=== PATIENT | female | born 1935 | race Caucasian/White ===

== ENCOUNTER 2016-07-01 10:41 | Observation (INO) | payer MEDICARE, BC ==
[2016-07-01] VITALS (26 sets, daily range): BP systolic 125–154; BP diastolic 57–77; PULSE 81–106; RESP 14–64; TEMP 97.1–98.2; O2SAT 90–99; Ht 149.9 cm; Wt 46.4 kg
[~2016-07-01] VITALS: Ht 149.9 cm; Wt 46.4 kg
[~2016-07-01 10:41] MED LIST: ABAT125S PO; ASPI-725 PO; CALC-727 PO; CITA-50 PO; FERR324T6 PO; MAGN400T25 PO; METO25TA6 PO; MULT1TAB69 PO; RANI-197 PO; WARF2TAB51 PO; WARF2TAB6 PO; [UNRECOGNIZED DRUG - CODE] PO
--- OUTSIDE RECORDS SUMMARY | 2016-07-01 10:53 | XMS REPORT | Continuity of Care Document ---
Author Author [facility] Organization [facility] Address Unknown Phone Unavailable Allergies Active Description Code Type Severity Reaction Onset Reported/Identified Relationship to Patient Clinical Status Yes Sulfa (Sulfonamide Antibiotics Drug Allergy N/A Eczema ( rash) 02/27/2010 Yes No Known Food Allergies Food Allergy N/A N/A 08/03/2013 Medications Problems Date Dx Coded Attending Type Code Diagnosis Diagnosed By 07/31/2013 Darrin Nuñez MD Final 424.0 MITRAL VALVE DISORDER 07/31/2013 Darrin Nuñez MD Final 425.11 HYPERTR OBSTR CARDIOMYOP 07/31/2013 Darrin Nuñez MD Final V72.63 PRE-PX LABORATORY EXAM 07/31/2013 Darrin Nuñez MD Final V72.81 PREOP CV EXAM 07/31/2013 Darrin Nuñez MD Final V72.83 PREOP EXAMINATION NEC 08/03/2013 Darrin Nuñez MD Final 285.1 ACUTE POSTHEMOR ANEMIA 08/03/2013 Darrin Nuñez MD Final 401.9 HYPERTENSION NOS 08/03/2013 Darrin Nuñez MD Final 424.0 MITRAL VALVE DISORDER 08/03/2013 Darrin Nuñez MD Final 425.11 HYPERTR OBSTR CARDIOMYOP 08/03/2013 Darrin Nuñez MD Final 427.32 ATRIAL FLUTTER 08/03/2013 Darrin Nuñez MD Final 428.0 CHF NOS 08/03/2013 Darrin Nuñez MD Final 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 Visit Date/Time Discharge Status Pt. Type Provider Facility Loc./Unit Complaint [id number] 08/03/2013 07:04:00 2013 14:04:00 DIS Inpatient Darrin Nuñez MD [address] [id number] 07/31/2013 08:45:00 2013 23:59:59 CLS Outpatient Darrin Nuñez MD [facility]
--- OUTSIDE RECORDS SUMMARY | 2016-07-01 10:53 | XMS REPORT | Continuity of Care Document ---
Author Author [facility] Organization [facility] Address Unknown Phone Unavailable Support Name Relationship Address Phone AUGUST, ROSE De Paz DO Caregiver [address] [place] [address] Unavailable ELISHA FLAVIO Winter DO Caregiver [address] [place] [address] Unavailable JR SIMONTY Next Of Kin [address] [place], [place] [id number] Insurance Providers Guarantor Dari Heller Address [address] [place] [address] Email [email or web address] Payer [employer] Plan 65 Policy Number [id number] Subscriber's Name Dari Hellre Carina Relationship 18 Self Group Number [id number] Payer Medicare Policy Number [id number] Subscriber's Name Dari Heller E Relationship 18 Self Advance Directives Directive Response Recorded Date/Time Advanced Directives Type Living Will DPOA for Healthcare 08/24/13 11:53am Ordered Resuscitation Status Full Code 08/24/13 10:31am Resuscitation Documents on File No 08/24/13 11:53am Chief Complaint and Reason for Visit Chief Complaint Laceration Reason for Visit [id number] Warfarin-induced coagulopathy Problems Active Problems Medical Problem Onset Date Status Abrasion of face Unknown Acute Nasal bone fractures Unknown Acute Nasal bone fractures Unknown Acute Past Problems Medical Problem Onset Date Contusion of right leg Unknown Elevated INR Unknown Hematoma Unknown Skin avulsion Unknown Warfarin-induced coagulopathy Unknown Medications Current Home Medications Medication Dose Units Route Directions Days Qty Instructions Start Date Abatacept (Orencia) 125 Mg/1 Ml Syringe 125 Mg Oral [id number] 05/30 Ascorbic Acid (Vitamin C With Jacqui Hips) 500 Mg Tablet 500 Mg Oral Daily 05/30/16 Aspirin 81 Mg Tab.chew 81 Mg Oral Bedtime 08/24/13 Calcium Carbonate/Vitamin D3 (Calcium 600 + Vit D 200 Tablet) 1 Each Tablet 1 Tab Oral Every Morning 05/30/16 Calcium Carbonate/Vitamin D3 (Calcium 600 + Vit D 200 Tablet) 1 Each Tablet 2 Tab Oral Bedtime 05/30/16 Citalopram Hydrobromide (Celexa) 20 Mg Tablet 10 Mg Oral Bedtime 03/26/12 Ferrous Sulfate 324 Mg Tablet 324 Mg Oral Give With Breakfast Magnesium Oxide (Mag-Oxide) 400 Mg Tablet 400 Mg Oral Twice A Day 08/24/13 Metoprolol Tartrate 25 Mg Tablet 25 Mg Oral Twice A Day 12/09/13 Multivitamin (Multivitamins) 1 Each Tablet 1 Tab Oral Daily 05/30 Ranitidine Hcl 150 Mg Tablet 150 Mg Oral Twice A Day 08/24/13 Warfarin Sodium 2 Mg Tablet 2 Mg Oral Sututhsa@Hs 08/24/13 Warfarin Sodium 2 Mg Tablet 1 Mg Oral Mowefr@Hs 12/02/15 Past Home Medications Medication Directions Ordered Status Amiodarone Hcl 200 Mg Tablet, Daily 08/24/13 Discontinued Aspirin 325 Mg Tablet, 325 Mg Oral Bedtime 07/10/13 Discontinued Diltiazem Hcl (Diltiazem Er) 180 Mg Cap.sr.24h, 180 Mg Oral Daily 07/10/13 Discontinued Fexofenadine Hcl (Patty) 30 Mg Tablet, 30 Mg G Tube As Needed 03/26/12 Discontinued Multivitamins W-Minerals (Multivitamin) 1 Cap Capsule, 1 Cap Oral Daily 01/30 Discontinued [place]-3 Fatty Acids (Fish Oil) 500 Mg Capsule, 1200 Mg Oral Three Times A Day 01/30/10 Discontinued Ranitidine Hcl 300 Mg Capsule, 150 Mg Oral Twice A Day 03/26/12 Discontinued Social History Social History Problem Response Recorded Date/Time Onset Date Status Hx Substance Use No 05/30/2016 5:30pm Not Applicable Not Applicable Hx Alcohol Use No 05/30/2016 5:30pm Not Applicable Not Applicable Has the pt used tobacco in the last 12 months No 04/17/2016 11:42am Not Applicable Not Applicable Tobacco Usage none 07/09/2014 2:10pm Not Applicable Not Applicable Query Response Start Date Stop Date Smoking Status Never smoker Hospital Discharge Instructions No hospital discharge instructions. Plan of Care Discharge Date 05/30/16 7:00pm Disposition 01 DISCHARGED HOME, SELF-CARE Condition at Discharge Improved Instructions/Education Provided Skin Avulsion (ED) Prescriptions See Medication Section Referrals FLAVIO TELLO DO Address: [address] [place] [address] [place] [phone] Additional Instructions/Education Keep dressing in place on forearm for 4 days. Do not take off steri-strip, let it come off on it's own. When you do put a new dressing on wound, use Telfa so it does not stick to wound/clot. Follow treatment plan. Follow with your PCP as needed. Care Plan and Goals Physician Care Plan Problem: Skin avulsion, warfarin induced coagulopathy Goal: Follow up with primary care provider Instructions: Take medications and follow care plan as discussed/written Functional Status No functional status results. Allergies, Adverse Reactions, Alerts Allergen Type Severity Reaction Status Last Updated Sulfa (Sulfonamide Antibiotics) Allergy Unknown Active 05/30/16 Immunizations Query Response on File Recorded Date/Time Hx Influenza Vaccination Y fall 201504/17/16 11:42am Hx Pneumococcal Vaccination Y 201304/17/16 11:42am Hx Influenza Vaccination Y fall 201504/17/16 11:42am Hx Tetanus Diptheria Y 05/05/12 07/09/14 12:06pm Vital Signs Acute Vital Signs Vital Response Date/Time Temperature (Fahrenheit) 98.7 deg F (96.8 - 99.1) 05/30/2016 7:00pm Temperature (Calculated Celsius) 37.27405 degrees C (36.0 - 37.3) 05/30/2016 7:00pm Pulse Rate (adult) 86 bpm (60 - 100) 05/30/2016 7:00pm Respiratory Rate 16 breaths/min (10 - 20) 05/30/2016 7:00pm O2 Sat by Pulse Oximetry 93 % (90 - 100) 05/30/2016 7:00pm Oxygen Delivery Method Room Air 05/22/2016 10:49am Blood Pressure 139/65 mm Hg 05/30/2016 7:00pm Blood Pressure Source Automatic Cuff 05/22/2016 10:49am Height (Feet) 5 feet 05/30/2016 5:15pm Height (Inches) 0 inches 05/30/2016 5:15pm Weight (Kilograms) 48.500 kg 05/30/2016 5:15pm Body Mass Index (BMI) 20.0 05/30/2016 5:15pm Results Laboratory Results Test Name Result Units Flags Reference Collection Date/Time Result Date/ Time Comments Prothromb Time International Ratio 2.76 H 0.76-1.04 05/30/2016 6:27pm 05/30/2016 6:37pm THERAPUTIC RANGE=2.00-3.00 FOR ANTI-THROMBOSIS THERAPUTIC RANGE=2.50-3.50 FOR IMPLANTED VALVE Procedures Procedure Status Date Provider(s) Ther/proph/diag iv inf init Completed 03/30/16 Ther/proph/diag iv inf addon Completed 03/30/16 810176"INJECTION INFLIXIMAB, 10 MG" Completed 03/30/16 459856"INFUSION, NORMAL SALINE SOLUTION , 250 CC" Completed 03/30/16 Encounters Encounter Location Arrival/Admit Date Discharge/Depart Date Attending Provider Departed Emergency Room [facility] 05/30/16 5:12pm 05/30/16 7: 00pm AUGUSTROSE DO Registered Recurring [facility] 05/22/16 11:00am FLAVIO TELLO DO Discharged [facility] 03/30/16 12:59pm 04/07/16 11: 22pm FLAVIO TELLO DO Recent Diagnosis
--- OUTSIDE RECORDS SUMMARY | 2016-07-01 10:53 | XMS REPORT | Continuity of Care Document ---
Author Author [facility] Organization [facility] Address Unknown Phone Unavailable Support Name Relationship Address Phone JINJEAN MNOAHAN Caregiver [facility] [address] [place] [address] FLAVIO TELLO DO Caregiver [facility] [address] [place] [phone] ZAFAR SIMON Next Of Kin [address] [place] [address] Insurance Providers Payer Name Policy Number Subscriber Name Relationship Medicare [id number] Dari Heller 18 Self [employer] Select Plan 65 [id number] Dari Heller 18 Self Advance Directives Directive Response Recorded Date/Time Advanced Directives Type Living Will DPOA for Healthcare 08/24/13 11:53am Ordered Resuscitation Status Full Code 08/24/13 10:31am Resuscitation Documents on File No 08/24/13 11:53am Problems Medical Problems Problem Onset Date Status Nasal bone fractures Unknown Active Abrasion of face Unknown Active Nasal bone fractures Unknown Active Medications Medication Dose Route Sig Days/Qty Instructions Order Date Discontinued Date Status Calcium Carbonate/Vitamin D3 1 Udtab PO TWICE A DAY 01/30/10 Active Multivitamins W-Minerals 1 Cap PO DAILY 01/30/10 08/24/13 Discontinued Ascorbic Acid 500 Mg PO DAILY 01/30/10 Active [place]-3 Fatty Acids 1,200 Mg PO THREE TIMES A DAY 01/30/10 08/24/13 Discontinued Citalopram Hydrobromide 1.5 Tab PO BEDTIME 03/26/12 Active Ranitidine Hcl 150 Mg PO TWICE A DAY 03/26/12 08/24/13 Discontinued Fexofenadine Hcl 30 Mg GT NEEDED 03/26/12 08/26/13 Discontinued Aspirin 325 Mg PO BEDTIME 07/10/13 08/24/13 Discontinued Diltiazem Hcl 180 Mg PO DAILY 07/10/13 08/24/13 Discontinued Magnesium Oxide 400 Mg PO TWICE A DAY 08/24/13 Active Furosemide DAILY 30 Days 08/24/13 Active Warfarin Sodium Unknown Dose PO DAILY 30 Days PT TAKES ALTERNATING DOSES EACH DAY. 08/24/13 Active Potassium Chloride Unknown Dose PO DAILY 30 Days 08/24/13 Active Amiodarone Hcl DAILY 30 Days 08/24/13 12/09/13 Discontinued Ferrous Sulfate 324 Mg PO GIVE WITH BREAKFAST 1 Qty 08/24/13 Active Aspirin 81 Mg PO 08/24/13 Active Ranitidine Hcl 150 Mg PO TWICE A DAY 08/24/13 Active Vits W-Ca,Fe,Fa(<1MG) 1 Tab PO DAILY 08/24/13 Active Fexofenadine Hcl 180 Mg PO DAILY PRN PRN ORDERS 08/26/13 Active Metoprolol Tartrate Unknown Dose PO TWICE A DAY 30 Days 12/09/13 Active Cephalexin 1 Cap PO FOUR TIMES DAILY For infection 10 Days 07/09/14 Active Social History Social History Problem Response Recorded Date/Time Hx Substance Use No 07/09/2014 12:06pm Hx Alcohol Use No 07/09/2014 12:06pm Has the pt used tobacco in the last 12 months No 12/09/2013 3:09pm Tobacco Usage none 07/09/2014 2:10pm Query Response Start Date Stop Date Smoking Status Never smoker Hospital Discharge Instructions No hospital discharge instructions. Plan of Care No plan of care. Functional Status Query Response Date Recorded Physical Hygiene Self July 09, 2014 12:06pm Disabilities None July 09, 2014 12:06pm Devices Used None July 09, 2014 12:06pm Dressing Self July 09, 2014 12:06pm Ambulation Self July 09, 2014 12:06pm Diet Self July 09, 2014 12:06pm Mental Status Alert Oriented July 09, 2014 12:06pm Disabilities None July 09, 2014 12:06pm Devices Used None July 09, 2014 12:06pm Physical Hygiene Self July 09, 2014 12:06pm Dressing Self July 09, 2014 12:06pm Ambulation Self July 09, 2014 12:06pm Diet Self July 09, 2014 12:06pm Allergies, Adverse Reactions, Alerts Allergen Type Severity Reaction Status Last Updated Sulfa (Sulfonamide Antibiotics) Allergy Unknown Active 07/09/14 Immunizations Name Given Type Hx Influenza Vaccination Y JAN 2013 Historical Hx Pneumococcal Vaccination Y 2013 Historical Hx Influenza Vaccination Y JAN 2013 Historical Hx Tetanus Diptheria Y 05/05/12 Historical Vital Signs Acute Vital Signs Vital Response Date/Time Temperature (Fahrenheit) 96.7 deg F (96.8 - 99.1) Temperature (Calculated Celsius) 35.27511 degrees C (36.0 - 37.3) Pulse Rate (adult) 73 bpm (60 - 100) Respiratory Rate 16 breaths/min (10 - 20) O2 Sat by Pulse Oximetry 96 % (90 - 100) Oxygen Flow Rate Blood Pressure 156/70 mm Hg Height 4 ft 5 in Weight 104 lb Body Mass Index 26.0 kg/m^2 Results Test Source Date Result Interp. Ref. Range Comments Activated Partial Thromboplast Time August 28, 2013 1:00am 45.0 SEC H 24- 36 Alanine Aminotransferase (ALT/SGPT) August 24, 2013 12:20pm 26 U/L N 9-52 COMMENT WILL CALL WHEN PT HAS ARRIVED Albumin August 24, 2013 12:20pm 3.0 G/DL L 3.5-5.0 COMMENT WILL CALL WHEN PT HAS ARRIVED Albumin/Globulin Ratio August 24, 2013 12:20pm 0.8 RATIO L 1.1-2.2 COMMENT WILL CALL WHEN PT HAS ARRIVED Alkaline Phosphatase August 24, 2013 12:20pm 135 U/L H 38-126 COMMENT WILL CALL WHEN PT HAS ARRIVED Anion Gap August 28, 2013 1:00am 6 MEQ/L N 5-15 Arterial Blood Base Excess July 10, 2013 3:15pm 2.0 MMOL/L N -2.0-2.0 COMMENT RIGHT HEART CATHETERIZATION IN ONCOLOGY NURSE NAVIGATOR Arterial Blood HCO3 July 10, 2013 3:15pm 27 MEQ/L H 22-26 COMMENT RIGHT HEART CATHETERIZATION IN ONCOLOGY NURSE NAVIGATOR Arterial Blood Oxygen Saturation July 10, 2013 3:15pm 60.0 % L 95.0- 98.0 COMMENT RIGHT HEART CATHETERIZATION IN ONCOLOGY NURSE NAVIGATOR Arterial Blood Partial Pressure CO2 July 10, 2013 3:15pm 44 MMHG N 34- 45 COMMENT RIGHT HEART CATHETERIZATION IN ONCOLOGY NURSE NAVIGATOR Arterial Blood Total CO2 July 10, 2013 3:15pm 29 MEQ/L H 23-27 COMMENT RIGHT HEART CATHETERIZATION IN ONCOLOGY NURSE NAVIGATOR Arterial Blood pH July 10, 2013 3:15pm 7.399 N 7.350-7.450 PA SPECIMEN Aspartate Amino Transf (AST/SGOT) August 24, 2013 12:20pm 33 U/L N 14-36 COMMENT WILL CALL WHEN PT HAS ARRIVED BUN/Creatinine Ratio August 28, 2013 1:00am 25 RATIO N 6-26 Basophils # (Auto) August 24, 2013 12:20pm 0.1 T/MM3 N 0-0.2 COMMENT WILL CALL WHEN PT HAS ARRIVED Basophils (%) (Auto) August 24, 2013 12:20pm 0.7 % N 0-2 COMMENT WILL CALL WHEN PT HAS ARRIVED Blood Urea Nitrogen August 28, 2013 1:00am 15.0 MG/DL N 7-17 Body Fluid Amylase August 27, 2013 4:30pm 32 U/L - Body Fluid Basophils August 27, 2013 4:30pm 0 % - Body Fluid Cholesterol August 27, 2013 4:30pm 68 mg/dL - Cholesterol, Fluid performed at [facility] Reference Lab, [address] [place] [address] Night Club Manager Luciano Winter MD Body Fluid Color August 27, 2013 4:30pm Swetha - Body Fluid Eosinophils August 27, 2013 4:30pm 0 % - Body Fluid Glucose August 27, 2013 4:30pm 84 mg/dl - Glucose, Fluid performed at [facility] Reference Lab, [address] [place] [address] Night Club Manager Luciano Winter MD Body Fluid Lactate Dehydrogenase August 27, 2013 4:30pm 132 U/L - LDH, Fluid performed at [facility] Reference Lab, [address] [place], [place] [address]Medical Director Luciano Winter MD Body Fluid Lymphocytes August 27, 2013 4:30pm 85 % - Body Fluid Monocytes August 27, 2013 4:30pm 0 % - Body Fluid Neutrophils August 27, 2013 4:30pm 7 % - Body Fluid RBC August 27, 2013 4:30pm 82055 /MM3 - Body Fluid Specific [place] August 27, 2013 4:30pm 1.025 - Body Fluid Total Nucleated Cells August 27, 2013 4:30pm 296 /MM3 - Body Fluid Total Protein August 27, 2013 4:30pm 3.8 g/dL - Protein, Fluid performed at [facility] Reference Lab, [address] [place] [address] Night Club Manager Luciano Winter MD Body Fluid Triglycerides August 27, 2013 4:30pm 25 mg/dL - Triglycerides , Fluid performed at [facility] Reference Lab, [address] [place] [place] [address] Night Club Manager Luciano Winter MD Body Fluid Turbidity August 27, 2013 4:30pm Slightly cloudy - Body Fluid Type August 27, 2013 4:30pm Thoracente - Amylase, Fluid performed at [facility] Reference Lab, [address], [place], [id number] Night Club Manager Luciano Winter MD Body Fluid pH August 27, 2013 4:30pm 8.00 - Calcium Level August 28, 2013 1:00am 8.6 MG/DL N 8.4-10.2 Calculated Osmolality August 28, 2013 1:00am 256 MOSM/KG L 261-280 Carbon Dioxide Level August 28, 2013 1:00am 26 MEQ/L N 22-30 Chloride Level August 28, 2013 1:00am 101 MEQ/L N 98-107 Creatinine August 28, 2013 1:00am 0.6 MG/DL L 0.7-1.2 Eosinophils # (Auto) August 24, 2013 12:20pm 0.4 T/MM3 N 0-0.5 COMMENT WILL CALL WHEN PT HAS ARRIVED Eosinophils (%) (Auto) August 24, 2013 12:20pm 5.2 % H 0-4 COMMENT WILL CALL WHEN PT HAS ARRIVED Erythrocyte Sedimentation Rate December 29, 2007 4:36pm 58 MM/HR - Free Thyroxine March 26, 2012 12:15pm 1.37 NG/DL N 0.78-2.19 Globulin August 24, 2013 12:20pm 3.6 G/DL N 2.4-3.6 COMMENT WILL CALL WHEN PT HAS ARRIVED Glucose Level August 28, 2013 1:00am 84 MG/DL N 65-110 Hematocrit August 24, 2013 12:20pm 33.6 % L 36-46 COMMENT WILL CALL WHEN PT HAS ARRIVED Hemoglobin August 24, 2013 12:20pm 10.3 GM/DL L 12-16 COMMENT WILL CALL WHEN PT HAS ARRIVED Lactate Dehydrogenase August 27, 2013 4:30pm 357 U/L N 313-618 COMMENT PATIENT IN SCU 5 Lymphocytes # (Auto) August 24, 2013 12:20pm 0.8 T/MM3 L 1-4.8 COMMENT WILL CALL WHEN PT HAS ARRIVED Lymphocytes (%) (Auto) August 24, 2013 12:20pm 11.5 % L 23-45 COMMENT WILL CALL WHEN PT HAS ARRIVED Mean Corpuscular Hemoglobin August 24, 2013 12:20pm 27.0 UUG N 26-34 COMMENT WILL CALL WHEN PT HAS ARRIVED Mean Corpuscular Hemoglobin Concent August 24, 2013 12:20pm 30.7 GM/DL L 31 -37 COMMENT WILL CALL WHEN PT HAS ARRIVED Mean Corpuscular Volume August 24, 2013 12:20pm 88.0 UM3 N 80-100 COMMENT WILL CALL WHEN PT HAS ARRIVED Mean Platelet Volume August 24, 2013 12:20pm 9.4 UM3 N 9.4-12.4 COMMENT WILL CALL WHEN PT HAS ARRIVED Monocytes # (Auto) August 24, 2013 12:20pm 0.6 T/MM3 N 0-0.8 COMMENT WILL CALL WHEN PT HAS ARRIVED Monocytes (%) (Auto) August 24, 2013 12:20pm 8.1 % N 0-9.0 COMMENT WILL CALL WHEN PT HAS ARRIVED Neutrophils # (Auto) August 24, 2013 12:20pm 5.4 T/MM3 N 1.8-7.7 COMMENT WILL CALL WHEN PT HAS ARRIVED Neutrophils (%) (Auto) August 24, 2013 12:20pm 74.2 % H 33-66 COMMENT WILL CALL WHEN PT HAS ARRIVED Platelet Count August 26, 2013 4:15am 416 T/MM3 H 130-400 COMMENT PLEASE USE BLOOD IN LAB Potassium Level August 28, 2013 1:00am 4.0 MEQ/L N 3.6-5 Prothromb Time International Ratio September 15, 2013 9:50am 7.35 PH 0.81- 1.09 THERAPUTIC RANGE=2.00-3.00 FOR ANTI-THROMBOSIS THERAPUTIC RANGE=2.50- 3.50 FOR IMPLANTED VALVE RDW Standard Deviation August 24, 2013 12:20pm 56.0 FL H 36.9-50.2 COMMENT WILL CALL WHEN PT HAS ARRIVED Red Blood Count August 24, 2013 12:20pm 3.82 M/MM3 L 4.00-5.20 COMMENT WILL CALL WHEN PT HAS ARRIVED Sodium Level August 28, 2013 1:00am 133 MEQ/L L 134-144 Thyroid Stimulating Hormone (TSH) March 26, 2012 12:15pm 0.41 MIU/L L 0.47-4.68 Total Bilirubin August 24, 2013 12:20pm 0.50 MG/DL N 0.20-1.30 COMMENT WILL CALL WHEN PT HAS ARRIVED Total Protein August 27, 2013 4:30pm 6.5 G/DL N 6.3-8.2 COMMENT PATIENT IN SCU 5 White Blood Count August 24, 2013 12:20pm 7.3 T/MM3 N 4.5-11.0 COMMENT WILL CALL WHEN PT HAS ARRIVED Chemistry Specimen Hemolysis August 28, 2013 1:00am < 15 0-25 0-25: No Hemolysis.26-70: Slight Hemolysis - can falsely elevate K and Urine Protein. 71-285: Moderate Hemolysis - can falsely elevate K, Troponin I, CA 19-9, PTH, CSF GLucose, and Urine Protein, and can falsely decrease Phenytoin. 286-999: Gross Hemolysis - can falsely elevate K, Troponin I, CA 19-9, PTH, CSF Glucose, and Urine Protine, and can falsely decrease Phenytoin. Recommend specimen recollection. Oxygen Delivery Method (LAB) July 10, 2013 3:15pm Room air - COMMENT RIGHT HEART CATHETERIZATION IN ONCOLOGY NURSE NAVIGATOR Lab Scanned Report September 15, 2013 7:48pm LAB TEST FORM REQUEST [id number] - Body Fluid Other Cells (%) August 27, 2013 4:30pm 7 % - MESOTHELIAL CELLS Turbidity August 28, 2013 1:00am < 20 0-20 Glomerular Filtration Rate Calc August 28, 2013 1:00am 97 - Immature Granulocyte # (Auto) August 24, 2013 12:20pm 0.02 T/MM3 N 0.00- 0.03 COMMENT WILL CALL WHEN PT HAS ARRIVED Immature Granulocyte % (Auto) August 24, 2013 12:20pm 0.3 % N 0.0-0.5 COMMENT WILL CALL WHEN PT HAS ARRIVED Arterial Blood pO2 at Patient Temp July 10, 2013 3:15pm [address] 80- 100 COMMENT RIGHT HEART CATHETERIZATION IN ONCOLOGY NURSE NAVIGATOR Icterus Index August 28, 2013 1:00am < 2 0-7 Fungal Culture Body Fluid-Thoracentesis Fluid August 27, 2013 4:30pm Acid Fast Bacilli Culture & Smear Fluid August 27, 2013 4:30pm Name: DARI HELLER Unit #: [id number] : 1935 Sex: F Loc / Svc: ED DOS: 07/09/14 Signed Report #: [id number] DIAGNOSTIC IMAGING REPORT TYPE OF EXAM: CT MAXILLOFACIAL W/O CONTRAST Dictated By: MATT STEWART MD Indication: ITS.REASON: facial trauma CT MAXILLOFACIAL W/O CONTRAST: Comparison: Head CT from today Technique: Axial noncontrast CT images through the mid face were performed with coronal and sagittal two-dimensional reformats. Findings: Tiny fracture of the anterior nasal arch and anterior most aspect of the nasal septum. No additional acute maxillofacial fracture identified. Severe degenerative changes in the upper cervical spine. The mastoid air cells are clear. Dental restorations causing metallic artifact. Mucosal thickening in both maxillary sinuses and evidence of chronic maxillary sinusitis. Left frontal scalp hematoma. Changes of prior bilateral cataract surgery. The globes are intact. No intraconal hematoma. Impression: Anterior nasal arch and nasal septal fractures. . Procedures Procedure Status Date Provider(s) [id number]"DIAGNOSTIC MAMMOGRAPHY, PRODUCING DIRECT DIGITAL IMAG completed Encounters Encounter Location Date/Time Departed Emergency Room [facility] 07/09/14 11:12am Registered Clinic [facility] 06/02/14 8:42am Recent Diagnosis
--- NOTE | 2016-07-01 10:55 | NUR ---
CT PT TO CT VIA WC.
--- NOTE | 2016-07-01 10:57 | NUR ---
REPORT RECEIVED FROM ERICA VAZQUEZ.
--- NOTE | 2016-07-01 11:01 | NUR ---
CT PT RETURNED.
--- NOTE | 2016-07-01 11:05 | NUR ---
MONITOR PLACED, PACED RHYTHM.
--- NOTE | 2016-07-01 11:09 | NUR ---
XRY PORTABLE AT BEDSIDE.
--- OUTSIDE RECORDS SUMMARY | 2016-07-01 11:15 | XMS REPORT | Continuity of Care Document ---
Author Author [facility] Organization [facility] Address Unknown Phone Unavailable Support Name Relationship Address Phone JINJEAN MONAHAN Caregiver [facility] [address] [place] [address] FLAVIO TELLO DO Caregiver [facility] [address] [place] [phone] ZAFAR SIMON Next Of Kin [address] [place] [address] Insurance Providers Payer Name Policy Number Subscriber Name Relationship Medicare [id number] Dari Heller 18 Self Blue Cross Select Plan 65 [id number] Dari Heller 18 Self Advance Directives Directive [...] Acid 500 Mg PO DAILY 01/30/10 Active [place]-3 Fatty Acids 1,200 Mg PO THREE TIMES [...] F (96.8 - 99.1) Temperature (Calculated Celsius) 35.24184 degrees C (36.0 - 37.3) Pulse Rate [...] N -2.0-2.0 COMMENT RIGHT HEART CATHETERIZATION IN HOUSE MOVER Arterial Blood HCO3 July 10, 2013 3:15pm 27 MEQ/L H 22-26 COMMENT RIGHT HEART CATHETERIZATION IN HOUSE MOVER Arterial Blood Oxygen Saturation July 10, 2013 3:15pm 60.0 % L 95.0- 98.0 COMMENT RIGHT HEART CATHETERIZATION IN HOUSE MOVER Arterial Blood Partial Pressure CO2 July 10, 2013 3:15pm 44 MMHG N 34- 45 COMMENT RIGHT HEART CATHETERIZATION IN HOUSE MOVER Arterial Blood Total CO2 July 10, 2013 3:15pm 29 MEQ/L H 23-27 COMMENT RIGHT HEART CATHETERIZATION IN HOUSE MOVER Arterial Blood pH July 10, 2013 3:15pm [...] 68 mg/dL - Cholesterol, Fluid performed at [facility] Reference Lab, [address] [place] [address] Audiology Director Luciano Winter MD Body Fluid Color August 27, 2013 4:30pm Swetha - Body Fluid Eosinophils August 27, 2013 4:30pm 0 % - Body Fluid Glucose August 27, 2013 4:30pm 84 mg/dl - Glucose, Fluid performed at [facility] Reference Lab, [address] [place] [address] Audiology Director Luciano Winter MD Body Fluid Lactate Dehydrogenase August 27, 2013 4:30pm 132 U/L - LDH, Fluid performed at [facility] Reference Lab, [address] [place], [place] [address]Medical Director Luciano Winter MD Body Fluid Lymphocytes August 27, 2013 4:30pm 85 % - Body Fluid Monocytes August 27, 2013 4:30pm 0 % - Body Fluid Neutrophils August 27, 2013 4:30pm 7 % - Body Fluid RBC August 27, 2013 4:30pm 07697 /MM3 - Body Fluid Specific [place] August 27, 2013 4:30pm 1.025 - Body Fluid Total Nucleated Cells August 27, 2013 4:30pm 296 /MM3 - Body Fluid Total Protein August 27, 2013 4:30pm 3.8 g/dL - Protein, Fluid performed at [facility] Reference Lab, [address] [place] [address] Audiology Director Luciano Winter MD Body Fluid Triglycerides August 27, 2013 4:30pm 25 mg/dL - Triglycerides , Fluid performed at [facility] Reference Lab, [address] [place] [address] Audiology Director Luciano Winter MD Body Fluid Turbidity August 27, 2013 4:30pm Slightly cloudy - Body Fluid Type August 27, 2013 4:30pm Thoracente - Amylase, Fluid performed at [facility] Reference Lab, [address], [place], [place] Audiology Director Luciano Winter MD Body Fluid pH August [...] air - COMMENT RIGHT HEART CATHETERIZATION IN HOUSE MOVER Lab Scanned Report September 15, 2013 7:48pm LAB TEST FORM REQUEST [id number] - Body Fluid Other Cells (%) August [...] 80- 100 COMMENT RIGHT HEART CATHETERIZATION IN HOUSE MOVER Icterus Index August 28, 2013 1:00am < 2 0-7 Fungal Culture Body Fluid-Thoracentesis Fluid August 27, 2013 4:30pm Acid Fast Bacilli Culture & Smear Fluid August 27, 2013 4:30pm Name: DARI HELLER Unit #: [id number] : 1935 Sex: F Loc / Svc: ED DOS: 07/09/14 Signed Report #: [id number] DIAGNOSTIC IMAGING REPORT TYPE OF EXAM: CT [...] fractures. . Procedures Procedure Status Date Provider(s) [id number]"DIAGNOSTIC MAMMOGRAPHY, PRODUCING DIRECT DIGITAL IMAG completed Encounters Encounter Location Date/Time Departed Emergency Room [facility] 07/09/14 11:12am Registered Clinic [facility] 06/02/14 8:42am Recent Diagnosis
--- OUTSIDE RECORDS SUMMARY | 2016-07-01 11:15 | XMS REPORT | Continuity of Care Document ---
Author Author [facility] Organization [facility] Address Unknown Phone Unavailable Allergies Active [...] Status Pt. Type Provider Facility Loc./Unit Complaint [id number] 08/03/2013 07:04:00 2013 14:04:00 DIS Inpatient Darrin Nuñez MD [address] [id number] 07/31/2013 08:45:00 2013 23:59:59 CLS Outpatient Darrin Nuñez MD [facility]
--- NOTE | 2016-07-01 11:22 | NUR ---
DR DR ANDERSEN AT BEDSIDE.
[2016-07-01 11:29] LABS: HCT - HEMATOCRIT 43.1 % (36-46); HGB - HEMOGLOBIN 13.9 GM/DL (12-16); MEAN CORPUSCULAR HGB 30.2 UUG (26-34); MEAN CORPUSCULAR HGB CONC(MCHC 32.3 GM/DL (31-37); MEAN CORPUSCULAR VOLUME 93.7 UM3 (80-100); MEAN PLATELET VOLUME 10.4 UM3 (9.4-12.4); WBC - WHITE BLOOD COUNT 8.5 T/MM3 (4.5-11.0)
[2016-07-01 11:35] LABS: INR 4.18 (0.76-1.04); PROTHROMBIN TIME 45.6 SEC (9.31-12.49); PTT 47.4 SEC (24-36)
[2016-07-01 11:37] LABS: ALBUMIN 3.8 G/DL (3.5-5.0); ALKALINE PHOSPHATASE 124 U/L (38-126); ALT (SGPT) 29 U/L (9-52); ANION GAP 7 MEQ/L (5-15); AST (SGOT) 90 U/L (14-36); BUN/CREATININE RATIO 18 RATIO (6-26); CHLORIDE 99 MEQ/L (98-107); CO2 - CARBON DIOXIDE 32 MEQ/L (22-30); CREATININE 0.9 MG/DL (0.7-1.2); GLOMERULAR FILTRATION RATE 60; GLUCOSE 124 MG/DL (65-110); POTASSIUM 4.6 MEQ/L (3.6-5); SODIUM 138 MEQ/L (134-144); TOTAL PROTEIN 7.8 G/DL (6.3-8.2)
[2016-07-01 11:44] LABS: BAND NEUTROPHILS # 0.2 T/MM3; LYMPHOCYTES # (MANUAL) 1.4 T/MM3 (1-4.8); MONOCYTES # (MANUAL) 0.9 T/MM3 (0-0.8); NUCLEATED RED BLOOD CELLS 1; TOTAL CELLS COUNTED 100 %
[2016-07-01 11:46] LABS: BLOOD, URINE TRACE-INTACT (NEGATIVE); COLOR,URINE YELLOW (YELLOW); LEUKOCYTE ESTERASE ,URINE NEGATIVE (NEGATIVE); NITRITE,URINE NEGATIVE (NEGATIVE); UROBILINOGEN,URINE 0.2 EU/DL (NORMAL)
[2016-07-01] MEDS ORDERED: FEXO180T94 PO (11:48)
[2016-07-01] MEDS ORDERED: INFL100V INJ (11:48)
--- NOTE | 2016-07-01 11:55 | NUR ---
HX OF FALLS NOTIFIED OF BRUISING TO LABIA, INQUIRED ABOUT RECENT FALLS. STATES THAT SHE FALLS "EVERY NOW AND THEN." STATES LAST FALL AT 1800 YESTERDAY. FOUND PT ON FLOOR BESIDE BED. DID NOT NOTE ANY INJURY AT THAT TIME. STATES SHE JUST STARTED USING A WALKER THIS AM.
[2016-07-01 11:59] LABS: CALCIUM 16.7 MG/DL (8.4-10.2)
[2016-07-01] MEDS ORDERED: NORMAL SALINE 500 ML IV ONE (12:00)
--- NOTE | 2016-07-01 12:20 | NUR ---
DR DR ANDERSEN IN ROOM. DAUGHTER AT BEDSIDE WITH PT'S .
--- OUTSIDE RECORDS SUMMARY | 2016-07-01 12:24 | XMS REPORT | Continuity of Care Document ---
Author Author [facility] Organization [facility] Address Unknown Phone Unavailable Allergies Active Description [...] Status Pt. Type Provider Facility Loc./Unit Complaint [id number] 08/03/2013 07:04:00 2013 14:04:00 DIS Inpatient Darrin Nuñez MD [address] [id number] 07/31/2013 08:45:00 2013 23:59:59 CLS Outpatient Darrin Nuñez MD [facility]
--- OUTSIDE RECORDS SUMMARY | 2016-07-01 12:25 | XMS REPORT | Continuity of Care Document ---
Author Author [facility] Organization [facility] Address Unknown Phone Unavailable Support Name Relationship Address Phone JINJEAN MONAHAN Caregiver [facility] [address] [place] [address] FLAVIO TELLO DO Caregiver [facility] [address] [place] [phone] ZAFAR SIMON Next Of Kin [address] [place] [address] Insurance Providers Payer Name Policy Number Subscriber Name Relationship Medicare [id number] Dari Heller 18 Self Blue Cross Select Plan 65 [id number] Dari Heller 18 Self Advance Directives Directive [...] Acid 500 Mg PO DAILY 01/30/10 Active [place]-3 Fatty Acids 1,200 Mg PO THREE TIMES [...] F (96.8 - 99.1) Temperature (Calculated Celsius) 35.72054 degrees C (36.0 - 37.3) Pulse Rate [...] N -2.0-2.0 COMMENT RIGHT HEART CATHETERIZATION IN SEX OFFENDER TREATMENT PROFESSIONAL Arterial Blood HCO3 July 10, 2013 3:15pm 27 MEQ/L H 22-26 COMMENT RIGHT HEART CATHETERIZATION IN SEX OFFENDER TREATMENT PROFESSIONAL Arterial Blood Oxygen Saturation July 10, 2013 3:15pm 60.0 % L 95.0- 98.0 COMMENT RIGHT HEART CATHETERIZATION IN SEX OFFENDER TREATMENT PROFESSIONAL Arterial Blood Partial Pressure CO2 July 10, 2013 3:15pm 44 MMHG N 34- 45 COMMENT RIGHT HEART CATHETERIZATION IN SEX OFFENDER TREATMENT PROFESSIONAL Arterial Blood Total CO2 July 10, 2013 3:15pm 29 MEQ/L H 23-27 COMMENT RIGHT HEART CATHETERIZATION IN SEX OFFENDER TREATMENT PROFESSIONAL Arterial Blood pH July 10, 2013 3:15pm [...] 68 mg/dL - Cholesterol, Fluid performed at [facility] Reference Lab, [address] [place] [address] Clothing Worker Luciano Winter MD Body Fluid Color August 27, 2013 4:30pm Swetha - Body Fluid Eosinophils August 27, 2013 4:30pm 0 % - Body Fluid Glucose August 27, 2013 4:30pm 84 mg/dl - Glucose, Fluid performed at [facility] Reference Lab, [address] [place] [address] Clothing Worker Luciano Winter MD Body Fluid Lactate Dehydrogenase August 27, 2013 4:30pm 132 U/L - LDH, Fluid performed at [facility] Reference Lab, [address] [place], [place] [address]Medical Director Luciano Winter MD Body Fluid Lymphocytes August 27, 2013 4:30pm 85 % - Body Fluid Monocytes August 27, 2013 4:30pm 0 % - Body Fluid Neutrophils August 27, 2013 4:30pm 7 % - Body Fluid RBC August 27, 2013 4:30pm 28680 /MM3 - Body Fluid Specific [place] August 27, 2013 4:30pm 1.025 - Body Fluid Total Nucleated Cells August 27, 2013 4:30pm 296 /MM3 - Body Fluid Total Protein August 27, 2013 4:30pm 3.8 g/dL - Protein, Fluid performed at [facility] Reference Lab, [address] [place] [address] Clothing Worker Luciano Winter MD Body Fluid Triglycerides August 27, 2013 4:30pm 25 mg/dL - Triglycerides , Fluid performed at [facility] Reference Lab, [address] [place] [address] Clothing Worker Luciano Winter MD Body Fluid Turbidity August 27, 2013 4:30pm Slightly cloudy - Body Fluid Type August 27, 2013 4:30pm Thoracente - Amylase, Fluid performed at [facility] Reference Lab, [address], [place], [place] Clothing Worker Luciano Winter MD Body Fluid pH August [...] air - COMMENT RIGHT HEART CATHETERIZATION IN SEX OFFENDER TREATMENT PROFESSIONAL Lab Scanned Report September 15, 2013 7:48pm LAB TEST FORM REQUEST [id number] - Body Fluid Other Cells (%) August [...] 80- 100 COMMENT RIGHT HEART CATHETERIZATION IN SEX OFFENDER TREATMENT PROFESSIONAL Icterus Index August 28, 2013 1:00am < 2 0-7 Fungal Culture Body Fluid-Thoracentesis Fluid August 27, 2013 4:30pm Acid Fast Bacilli Culture & Smear Fluid August 27, 2013 4:30pm Name: DARI HELLER Unit #: [id number] : 1935 Sex: F Loc / Svc: ED DOS: 07/09/14 Signed Report #: [id number] DIAGNOSTIC IMAGING REPORT TYPE OF EXAM: CT [...] fractures. . Procedures Procedure Status Date Provider(s) [id number]"DIAGNOSTIC MAMMOGRAPHY, PRODUCING DIRECT DIGITAL IMAG completed Encounters Encounter Location Date/Time Departed Emergency Room [facility] 07/09/14 11:12am Registered Clinic [facility] 06/02/14 8:42am Recent Diagnosis
--- NOTE | 2016-07-01 12:44 | NUR ---
DR DR ANDERSEN AT BEDSIDE, ASSESSED PERINEUM AND LABIAL FOLDS. SEROSANG. DRAINAGE, SMALL AMOUNT NOTED FROM ANTERIOR AT START OF LABIA MAJORA/SYMPHUS PUBIS. PER DR ANDERSEN, TO PLACE GAUZE AT ANTERIOR. GAUZE PLACED AT THIS TIME.
[2016-07-01] MEDS ORDERED: ASPIRIN 300 MG RECTAL SUPPOSITORY RECTALLY ONE (12:45)
[2016-07-01] MEDS ORDERED: ALBUTEROL/IPRATROPIUM INHAL. 2.5mg-0.5mg/3ml Neb. AEROSOL ONE (12:45)
--- NOTE | 2016-07-01 12:46 | ERPDOC ---
Departure Disposition Decision Date: Jul 01, 2016 Disposition Decision Time: 12:13 Disposition: 02 TO [facility] Impression Impression Impression: Primary Impression: Acute CVA (cerebrovascular accident) Additional Impression: Hypercalcemia Severity: Moderate Condition: Improved Seen By: Physician only Referrals: FLAVIO TELLO DO (Family) Problems/Meds/Labs Reviewed?: Yes Medications reviewed and manag: Yes Follow up care ordered?: Yes Mental Status: Alert HPI - General Medical General Chief Complaint: Stroke Symptoms Stated Complaint: ACUTE CVA Time Seen by Provider: 10:50 Source: patient, family Exam Limitations: no limitations HPI - General Medical Initial Comments 80-year-old female presents the emergency department with the chief complaint of stroke-like symptoms. Patient noted onset of slurred speech and difficulty expressing her thoughts one day ago. Patient was last known normal at approximately 2 PM yesterday. Patient was at home when her symptoms began. Symptoms have been persistent in nature since onset. Patient denies any current pain or discomfort other than her typical arthritic discomfort. This is at baseline. She denies any chest pain or shortness of breath. Patient is alert and oriented but does seem to have trouble answering questions which require more thought. Patient and family deny any recent trauma or injury. No other complaints or associated symptoms. No alcohol or drug use. No recent changes in medications. 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 Occurred At: home Onset: Gradual Allergies: Coded Allergies: Sulfa (Sulfonamide Antibiotics) (Verified Allergy, Unknown, 07/01/16) Past History Past Medical History Metabolic: hypertension ENMT: cataracts Cardiac: CAD, CHF, other Respiratory: pneumonia Surgical History Cardiac: cardiac cath, implantable defib, pacemaker Reproductive/: hysterectomy Joint: foot Family History Family PMH: FOUND: hypertension, other Vaccines Hx Influenza Vaccination: Yes (FALL 2015) Hx Pneumococcal Vaccination: Yes (2013) Hx Tetanus Diptheria: Yes (05/05/12) Social History Smoking Status: Never smoker Substance Use Type: does not use Alcohol Intake: none Marital Status: Sexuality: male partner Household Members: spouse Review of Systems Unable to Obtain Comments Review of systems obtained with help of family members at bedside. Constitutional Constitutional: DENIES: chills, fever Eyes General: DENIES: erythema, exudate Lids/Accessories: DENIES: erythema, swelling Vision: DENIES: acuity, blurring ENMT Ears: DENIES: drainage, pain Hearing: DENIES: hearing loss Balance: DENIES: ataxia, falling to one side Sinuses: DENIES: congestion, pain Nose: DENIES: nosebleeds, pain Mouth/Throat: DENIES: drooling, painful swallowing Teeth: DENIES: pain Jaw: DENIES: pain Cardiovascular Cardiac: DENIES: chest pain, dyspnea on exertion Rhythm/Rate: DENIES: irregular beat, palpitations Vascular: DENIES: pedal edema, unilateral swelling Pulmonary Respiratory: DENIES: cough, dyspnea, pleuritic chest pain, sputum GI Upper Abdomen: DENIES: nausea, pain, vomiting Lower Abdomen: DENIES: diarrhea, pain General: DENIES: dysuria, frequency Musculoskeletal General: DENIES: joint pain, pain, tenderness Neurological General: DENIES: headache, numbness, weakness Psychiatric Psychiatric: DENIES: depression, suicidal ideation/attempt Endocrine Endocrine: DENIES: polydipsia, polyphagia Hematologic/Lymphatic Hematologic/Lymphatic: DENIES: frequent nosebleeds, lymphadenopathy Allergic/Immunological Allergic/Immunoligical: DENIES: allergic reactions, hives Physical Exam General General Nourishment: well nourished, well developed, appears stated age, no acute distress, adult General Body Habitus: well groomed Vitals and Pain First Documented Vital Signs Date Time Temp Pulse Resp B/P Pulse Ox O2 Delivery O2 Flow Rate FiO2 07/01/16 10:41 97.6 98 16 72/ 96 Room Air Weight: Kilograms: 47.400 Height (feet): 4 Height (inches): 11.00 Triage Pain Scale: RN VS reviewed by Provider: Yes Normal Exams: Head: Normocephalic w/o trauma Eyes: Pupils are PERRLA w/ EOMI, No scleral icterus, irritation, or foreign bodies noted ENMT: No facial trauma, nasal exudates, pharyngeal erythema, or exudates are noted Dental: No fractured, loose, or missing teeth noted Neck: Full range of motion, without adenopathy, JVD, bruits or thyromegaly Chest/Resp: Clear all velasco, with good airflow, and symmetry bilaterally CV: Regular rate and rhythm, without murmur or gallop, Pulses 2+ all extremities, capillary refill, <2 seconds all ext., no pedal edema noted Abdomen: Bowel sounds positive, soft, non-tender, non-distended, no hepatosplenomegaly, masses or bruits noted Lymphatic: No lymphadenopathy, or lymphedema noted Musculoskeletal: No tenderness, or deformity noted, good range of motion, all extremities Integumentary: No rashes, hives, or bruising noted, hair and nails, without abnormality Neurologic: Patient is alert, and oriented, cranial nerves, motor/sensory/ cerebellar, exams w/o gross deficits, to observation Psychiatric: Patient exhibits, appropriate attention, emotion and affect Neurologic (brief) Comments Alert and oriented x 3 but struggles with deeper questioning. CN 2-12 intact. sensation intact. strength symmetric. gait unable to be tested. normal motor. speech is slightly thick with difficulty expressing thought. absent babinski bilat. symmetric co-ordination. Differential Diagnoses Considering: CVA, Hypo/Hyperglycemia, Metabolic, TIA, UTI Progress Results/Orders Orders Procedure Category Date Status Time Ct Head W/O Contrast CT 07/01/16 Resulted 10:50 Cbc W/Auto LAB 07/01/16 Complete Diff-Reflex Manual Cmp - Comprehensive LAB 07/01/16 Complete Metabolic Troponin I W LAB 07/01/16 Complete Hemolysis Index Catheterize For Ua NED 07/01/16 In Process 10:56 Ua, Dip Wreflex LAB 07/01/16 Complete Microsc & Head Golf Coach 10:56 INR LAB 07/01/16 Complete PTT LAB 07/01/16 Complete Chest 1 View RAD 07/01/16 Resulted 10:56 EKG EKG 07/01/16 Taken Normal Saline (Ns) PHA 07/01/16 Complete 12:00 Place In Facility: ED ADM 07/01/16 Transmitted 12:13 Lab Results Laboratory Tests Test 07/01/16 10:53 07/01/16 11:19 07/01/16 11:39 Glucometer 116mg/dL White Blood Count 8.5T/MM3 Red Blood Count 4.60M/MM3 Hemoglobin 13.9GM/DL Hematocrit 43.1% Mean Corpuscular Volume 93.7UM3 Mean Corpuscular Hemoglobin 30.2UUG Mean Corpuscular Hemoglobin Concent 32.3GM/DL RDW Standard Deviation 53.0FL Platelet Count 136T/MM3 Mean Platelet Volume 10.4UM3 Immature Granulocyte % (Auto) % Neutrophils (%) (Auto) % Lymphocytes (%) (Auto) % Monocytes (%) (Auto) % Eosinophils (%) (Auto) % Basophils (%) (Auto) % Absolute Immature Granulocyte (auto T/MM3 Absolute Neutrophils (auto) T/MM3 Absolute Lymphocytes (auto) T/MM3 Absolute Monocytes (auto) T/MM3 Absolute Eosinophils (auto) T/MM3 Absolute Basophils (auto) T/MM3 Neutrophils % (Manual) 71.0% Band Neutrophils % 2.0% Lymphocytes % (Manual) 17.0% Monocytes % (Manual) 10.0% Absolute Neutrophils (Manual) 6.0T/MM3 Band Neutrophils # 0.2T/MM3 Lymphocytes # (Manual) 1.4T/MM3 Monocytes # (Manual) 0.9T/MM3 Nucleated Red Blood Cells 1 Red Cell Morphology Comment Normal Prothromb Time International Ratio 4.18 Activated Partial Thromboplast Time 47.4SEC Turbidity < 20 Sodium Level 138MEQ/L Potassium Level 4.6MEQ/L Chloride Level 99MEQ/L Carbon Dioxide Level 32MEQ/L Anion Gap 7MEQ/L Blood Urea Nitrogen 16.0MG/DL Creatinine 0.9MG/DL Glomerular Filtration Rate Calc 60 BUN/Creatinine Ratio 18RATIO Glucose Level 124MG/DL Calculated Osmolality 268MOSM/KG Calcium Level 16.7MG/DL Total Bilirubin 0.80MG/DL Icterus Index < 2 Aspartate Amino Transf (AST/SGOT) 90U/L Alanine Aminotransferase (ALT/SGPT) 29U/L Alkaline Phosphatase 124U/L Troponin I 0.052ng/ml Total Protein 7.8G/DL Albumin 3.8G/DL Globulin 4.0G/DL Albumin/Globulin Ratio 1.0RATIO Chemistry Specimen Hemolysis < 15 Urine Collection Type Straight cath Urine Color Yellow Urine Turbidity Clear Urine pH 6.0 Urine Specific [place] 1.025 Urine Protein Trace Urine Glucose (UA) Negative Urine Ketones Negative Urine Blood Trace-intact Urine Nitrite Negative Urine Bilirubin Negative Urine Urobilinogen 0.2EU/DL Urine Leukocyte Esterase Negative Urinalysis Comment Microscopic not ind. Medications Current ED Medications Sodium Chloride (NS) 500 ml @ 999 mls/hr Q31M ONCE IV Last administered on t 12:11; Start 07/01/16 at 12:00; Stop 07/01/16 at 12:30; Status DC Progress Progress Labs/imaging were discussed in detail with the patient and family and questions are answered. A stroke alert is not called on the patient as the patient as her symptoms began approximately 24 hours ago but a stat CT head was still obtained. The CT head was unremarkable. Patient was admitted to the service of Dr. Lang the hospitalist in improved condition. Patient was given 300 mg of rectal aspirin times one as she will be evaluated for a potential acute CVA. Dr. Lang is in agreement with the current plan of management. Patient is admitted to the hospital in improved condition. After the patient was admitted I received the patient's elevated calcium level and the elevated calcium level and a room number for the patient are called to Dr. Lang. Patient was given 500 mL normal saline intravenously for treatment of the elevated calcium level. Diuresis with Lasix and other treatment will be left to the discretion of the hospitalist. Patient is admitted to the hospital in improved condition. Patient was not a TPA candidate as she is anticoagulated with Coumadin and her symptoms began outside of the window for treatment. Patient was noted to have a left bundle branch block on her EKG. Her EKG was reviewed with her geospatial extractor analysis Dr. Caruso who recommends medical treatment at this time as the patient has no chest pain or current cardiac symptoms.His recommendation is to treat the neurological emergency at this time and there is no need for acute cardiac intervention at this time. Troponin returned negative. Patient was admitted to the hospital in improved condition. She and her family are in agreement with the current plan of management. No further orders from consulting or accepting physicians who were in agreement with the current plan of management. EKG EKG : Rate: 60-100 Rhythm: sinus [place]: left QRS: LBBB Intervals: normal ST/T: normal Interpreted by: signing physician Xray Xray : Xray: CXR Portable Interpretation: Normal, Interpreted by Oh CT Date CT Interpreted for [place]: Jul 01, [address] Interpreted for Stroke: 11:19 CT : CT: Head no contrast Interpretation: Normal, Reviewed Written Report (CT cervical spine: No acute fracture.) ALEXA ANDERSEN DO Jul 01, 2016 12:46
--- NOTE | 2016-07-01 12:59 | NUR ---
RADIOLOGY NOTIFIED OF NEED FOR CT. PER CHARI, UNABLE TO PERFORM AT THIS TIME. DR ANDERSEN NOTIFIED. MAY GO AHEAD AND ADMIT PT TO MEDICAL UNIT WITH C-COLLAR REMAINING.
--- NOTE | 2016-07-01 13:09 | NUR ---
REPORT CALLED TO ILSA KEEN. MEDICAL UNIT.
--- NOTE | 2016-07-01 13:11 | NUR ---
CT PER DR ANDERSEN, CT SCAN REBOOTING APPROPRIATELY, TO HOLD PT IN ER TO RECEIVE SCAN PRIOR TO ADMISSION. LEONILA RN MEDICAL UNIT NOTIFIED.
--- NOTE | 2016-07-01 13:15 | NUR ---
CT PT TO CT VIA JERONIMO, ACCOMPANIED BY THIS RN.
--- NOTE | 2016-07-01 13:25 | NUR ---
CT PT RETURNED.
--- NOTE | 2016-07-01 13:31 | NUR ---
MENTAL STATUS PT REMAINS ALERT, ABLE TO STATE NAME, DATE OF . PT UNABLE TO STATE LOCATION. PT AWARE THAT SHE IS NOT AT HOME, BUT UNABLE TO SAY SHE IS AT THE HOSPITAL. PT STATES IT IS June,, AND IDENTIFIES THE PRESIDENT ACCURATELY.
--- NOTE | 2016-07-01 13:38 | NUR ---
C-COLLAR REMOVED AT THIS TIME DIRECTED BY DR ANDERSEN. TO PROCEED WITH ADMISSION.
--- NOTE | 2016-07-01 13:41 | NUR ---
ADMIT PT TRANSFERRED TO MEDICAL UNIT VIA GURNEY BY THIS RN. PERSONAL BELONGINGS ACCOMPANY.
--- NOTE | 2016-07-01 13:45 | NUR ---
REPORT UPDATE GAVE ADDITIONAL INFORMATION, VERBALLY, TO LEONILA RN REGARDING REMOVAL OF C-COLLAR AND CURRENT MENTAL STATUS.
[2016-07-01] MEDS ORDERED: POTA-12 PO (15:05)
[2016-07-01] MEDS ORDERED: FURO20TA4 PO (15:05)
[2016-07-01] MEDS ORDERED: ABAT125S (15:05)
[2016-07-01] MEDS ORDERED: ACETAMINOPHEN 500 MG TABLET PO PRN (17:00)
[2016-07-01] MEDS ORDERED: ONDANSETRON 4mg/2ml INJECTION IV PRN (17:00)
[2016-07-01] MEDS: NORMAL SALINE 1,000 ML IV SCH ×2 (17:12→23:10)
--- NOTE | 2016-07-01 17:40 | HPPDOC ---
SANYA MONTERO IV THERAPY NURSE 07/01/16 1724: HPI - Adult Date DATE: 07/01/16 TIME: 17:17 General Chief Complaint: Confusion History of Present Illness Dari is a pleasant 80 yo female who appears younger than stated age. She was brought into the ED today due to confusion. is with her and helps give history as patient remains fairly confused despite being alert. reports that she was more fatigued than normal yesterday and slept most of the day. She ate a normal breakfast, but has not eaten much since then. He had to help her take her normal medications last night. She was weak this morning and had to use a walker 'for the first time.' She was seen in the ED and was evaluated for possible stroke with fairly normal imaging. At the time of this document, this author was first aware of a critically high calcium upon review of the chart upon completing review of the record. I have reviewed recent findings with patient and her . 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 Also has AICD/PPM in place. Follows with Dr. Caruso. Dr. Nuñez completed her surgery. They deny any recent health changes. No nausea or vomiting. No weight changes up or down. No focal pain in back, neck or legs. No bowel or bladder changes. She denies recent falls or injuries. She denies history of malignancy. Breast biopsy in past was reviewed and negative. No severe GERD. Does not routinely use any TUMS or other GI calcium supplements. Only takes one Calcium 600mg daily. Past Medical History Past Medical History Mechanical MVR- [facility] PPM/AICD Rheumatoid arthritis on immunosuppressive agents HTN GERD Depression Surgical History Patient's Surgical History: MVR hysterectomy Bunion PPM/AICD Current Medications Home Meds Reported Medications Abatacept (Orencia) 125 Mg/1 Ml Syringe 07/01/16 Potassium Chloride (Potassium Chloride) 10 Meq Tab.er.prt, 1 TAB PO DAILY, #30 TAB 5 Refills 07/01/16 Furosemide (Furosemide) 20 Mg Tablet, 1 TAB PO DAILY, TAB 07/01/16 Fexofenadine HCl (Patty Allergy) 180 Mg Tablet, 180 MG PO DAILY Y for PRN ORDERS 07/01/16 Multivitamin (Multivitamins) 1 Each Tablet, 1 TAB PO DAILY 05/30/16 Ascorbic Acid (Vitamin C with Jacqui Hips) 500 Mg Tablet, 500 MG PO DAILY 05/30/16 Calcium Carbonate/Vitamin D3 (Calcium 600 + Vit D 200 Tablet) 1 Each Tablet, 1 TAB PO QAM 05/30/16 Warfarin Sodium (Warfarin Sodium) 2 Mg Tablet, 1 MG PO MoWeFr@HS 12/02/15 Metoprolol Tartrate (Metoprolol Tartrate) 25 Mg Tablet, 25 MG PO BID 12/09/13 Ranitidine Hcl (Ranitidine Hcl) 150 Mg Tablet, 150 MG PO HS 08/24/13 Aspirin (Aspirin) 81 Mg Tab.chew, 81 MG PO HS 08/24/13 Ferrous Sulfate (Ferrous Sulfate) 324 Mg Tablet, 324 MG PO WB 08/24/13 Warfarin Sodium (Warfarin Sodium) 2 Mg Tablet, 2 MG PO SuTuThSa@HS 08/24/13 Magnesium Oxide (Mag-Oxide) 400 Mg Tablet, 400 MG PO BID 08/24/13 Citalopram (Celexa) 20 Mg Tablet, 20 MG PO HS 03/26/12 Allergies: Coded Allergies: Sulfa (Sulfonamide Antibiotics) (Verified Allergy, Unknown, 07/01/16) Family History Family History: Denies history of malignancy, CAD, DM2. Social History Smoking Status: Unknown if ever smoked Substance Use Type: does not use Marital Status: Sexuality: male partner Household Members: spouse Review of Systems Unable to Obtain ROS Due to: clinical condition Comments Unable to obtain full ROS due to pt. confusion. did contribute to ROS during visit. Physical Exam General General Nourishment: well nourished, well developed, apparent age General Body Habitus: well groomed Vital Signs Vital Signs Date Time Temp Pulse Resp B/P Pulse Ox O2 Delivery O2 Flow Rate FiO2 07/01/16 16:22 97 18 07/01/16 16:06 93 07/01/16 15:43 97.9 07/01/16 14:01 154/67 Room Air Height (Feet): 4 Height (Inches): 11.00 Telemetry Rhythm: Vpaced Eyes Brief: FOUND: EOMI, PERRL, NOT FOUND: foreign body, scleral icterus ENMT Brief: NOT FOUND: mucosa moist (Dry. ) Neck Brief: FOUND: midline, NOT FOUND: JVD, adenopathy, nuchal rigidity, spasm , tenderness, thyromegaly, tracheal deviation Respiratory Brief: FOUND: clear all velasco, equal bilaterally, symmetrical, NOT FOUND: rales, wheezes Cardiovascular (brief) Cardiac Brief: FOUND: click (Mitral valve-mechanical), regular rate, regular rhythm, NOT FOUND: pedal edema Abdomen (brief) Abdominal Brief: FOUND: BS normo active x4, soft, NOT FOUND: distended, tender Comments No palpable masses or lesions. Lymphatic (brief) Lymphatic Brief: NOT FOUND: adenopathy, lymphedema Musculoskeletal (brief) Musculoskeletal Brief: NOT FOUND: deformity, loss of motion, spasm, tenderness Integumentary (brief) Integumentary Brief: FOUND: dry, warm Neurologic (brief) Comments Pupils reactive. No facial droop. Tongue protrusion midline. Unable to shrug shoulders- reports pain, chronic since pacer placed. Day Care Home Provider =, 3/5 strength. LE equal. No pronator drift. Neurologic RN Documented GCS Eye Opening: (4)Spontaneous Verbal: (4)Confused Motor: (6)Obeys Commands Total: 14 Psychiatric (brief) FOUND: alert, attentive, NOT FOUND: oriented Laboratory Laboratory Tests Test 07/01/16 10:53 07/01/16 11:19 07/01/16 11:39 Glucometer 116mg/dL White Blood Count 8.5T/MM3 Red Blood Count 4.60M/MM3 Hemoglobin 13.9GM/DL Hematocrit 43.1% Mean Corpuscular Volume 93.7UM3 Mean Corpuscular Hemoglobin 30.2UUG Mean Corpuscular Hemoglobin Concent 32.3GM/DL RDW Standard Deviation 53.0FL Platelet Count 136T/MM3 Mean Platelet Volume 10.4UM3 Immature Granulocyte % (Auto) % Neutrophils (%) (Auto) % Lymphocytes (%) (Auto) % Monocytes (%) (Auto) % Eosinophils (%) (Auto) % Basophils (%) (Auto) % Absolute Immature Granulocyte (auto T/MM3 Absolute Neutrophils (auto) T/MM3 Absolute Lymphocytes (auto) T/MM3 Absolute Monocytes (auto) T/MM3 Absolute Eosinophils (auto) T/MM3 Absolute Basophils (auto) T/MM3 Neutrophils % (Manual) 71.0% Band Neutrophils % 2.0% Lymphocytes % (Manual) 17.0% Monocytes % (Manual) 10.0% Absolute Neutrophils (Manual) 6.0T/MM3 Band Neutrophils # 0.2T/MM3 Lymphocytes # (Manual) 1.4T/MM3 Monocytes # (Manual) 0.9T/MM3 Nucleated Red Blood Cells 1 Red Cell Morphology Comment Normal Prothromb Time International Ratio 4.18 Activated Partial Thromboplast Time 47.4SEC Turbidity < 20 Sodium Level 138MEQ/L Potassium Level 4.6MEQ/L Chloride Level 99MEQ/L Carbon Dioxide Level 32MEQ/L Anion Gap 7MEQ/L Blood Urea Nitrogen 16.0MG/DL Creatinine 0.9MG/DL Glomerular Filtration Rate Calc 60 BUN/Creatinine Ratio 18RATIO Glucose Level 124MG/DL Calculated Osmolality 268MOSM/KG Calcium Level 16.7MG/DL Total Bilirubin 0.80MG/DL Icterus Index < 2 Aspartate Amino Transf (AST/SGOT) 90U/L Alanine Aminotransferase (ALT/SGPT) 29U/L Alkaline Phosphatase 124U/L Troponin I 0.052ng/ml Total Protein 7.8G/DL Albumin 3.8G/DL Globulin 4.0G/DL Albumin/Globulin Ratio 1.0RATIO Chemistry Specimen Hemolysis < 15 Urine Collection Type Straight cath Urine Color Yellow Urine Turbidity Clear Urine pH 6.0 Urine Specific Mccurtain 1.025 Urine Protein Trace Urine Glucose (UA) Negative Urine Ketones Negative Urine Blood Trace-intact Urine Nitrite Negative Urine Bilirubin Negative Urine Urobilinogen 0.2EU/DL Urine Leukocyte Esterase Negative Urinalysis Comment Microscopic not ind. Radiology [place], [place] [address] Name: DARI OSUNA Unit #: [id number] Signed Page 1 of 1 DIAGNOSTIC IMAGING REPORT Report #: [id number] Dictated By: MATT STEWART MD 12/06/15812 Signed date/time: 12/06/15816 Transcribed By: TRANSCRIPT [employer] 12/06/15812 cc: CHARLES AL [address] [address] [phone] Dictated By: MATT STEWART MD 12/06/15812 Signed date/time: 12/06/15816 Transcribed By: TRANSCRIPT [employer] 12/06/15812 cc: CHARLES AL PROCEDURE: CT PELVIS W/O CONTRAST: Encounter: Initial Comparison: None Technique: Axial noncontrast CT imaging the pelvis with coronal and sagittal two-dimensional reformats and three-dimensional surface shaded volume rendered images. Findings: No acute fracture identified. Pubic symphysis is intact. Soft tissue windows show an unremarkable appearance of the visualized small and large bowel in the pelvis. Prior hysterectomy. There is abnormal swelling of the right-sided quadriceps musculature with a 6.1 cm area of mixed high and low attenuation seen on axial image #80. This probably represents a hematoma given the history of recent trauma and is in the rectus femoris muscle. Intramuscular neoplasm is much less likely statistically. Impression: No acute fracture. Large probable hematoma in the right quadriceps musculature. Recommend clinical follow-up to evaluate for resolution. If this persists further evaluation with a contrast enhanced MRI can be performed to exclude neoplasm. . Concerns For Adverse Events High Assessment & Plan Problems: (1) Hypercalcemia Status: Acute Assessment & Plan: Critical hypercalcemia without tetany (2) Acute confusion Status: Acute (3) Abnormal computed tomography of lower extremity Status: Chronic (4) S/P heart valve replacement with mechanical valve Status: Chronic (5) Chronic anticoagulation Status: Chronic (6) HTN (hypertension) Status: Chronic Qualifiers: Hypertension type: essential hypertension Qualified Codes: I10 - Essential (primary) hypertension (7) S/p recent immunosuppressive therapy Status: Chronic (8) Rheumatoid arthritis Status: Chronic Plan/Intensity of Service 07/01/16- *Critical Hypercalcemia without tetany. Likely reason for confusion. Move to ICU now. Add IVF, Lasix for diuresis. Assess Inz CA, PTH, Vitamin D level. Very concerning for malignancy given chronic immunosuppression. Reassess CT of the leg due to abnormal CT of the thigh in November. (hematoma vs. malignancy). Renal function is stable. Place mercado due to need for aggressive diuresis. *AMS- Likely due to calcium. Hold sedating meds. CT of head on preliminary looks ok. Unable to get MRI due to ppm. Hold ASA due to excess anticoagulation. *Mechanical MVR- excess anticoagulation. INR over 4.0 Hold warfarin for now. Consult pharmacy for management. *RA, chronic immunosuppression- Hold immunosuppressive therapy. Assess PTH, LDH. *HTN- Continue Metoprolol for now as she has a pacer backup. Frequent VS assessment in ICU. D/W pt. at length and her . Again, move to ICU. Serial labs. Close monitoring. I updated Dr. Lang on critical labs and plan of care for monitoring. Labs are to be reassessed and called to window installer after initiation of fluids. Concerning for bony cancer. DVT Prophylaxis: Coumadin Code Status Full Code Hospital Course Summary Disclaimer The hospital course summary below is not to be considered part of the above Progress Note. Hospital Course Summary 07/01/16- *Critical Hypercalcemia without tetany. Likely reason for confusion. Move to ICU now. Add IVF, Lasix for diuresis. Assess Inz CA, PTH, Vitamin D level. Very concerning for malignancy given chronic immunosuppression. Reassess CT of the leg due to abnormal CT of the thigh in November. (hematoma vs. malignancy). Renal function is stable. Place mercado due to need for aggressive diuresis. *AMS- Likely due to calcium. Hold sedating meds. CT of head on preliminary looks ok. Unable to get MRI due to ppm. Hold ASA due to excess anticoagulation. *Mechanical MVR- excess anticoagulation. INR over 4.0 Hold warfarin for now. Consult pharmacy for management. *RA, chronic immunosuppression- Hold immunosuppressive therapy. Assess PTH, LDH. D/W pt. at length and her . Again, move to ICU. Serial labs. Close monitoring. MIKEL LANG DO 07/01/16 2143: Past Medical History Current Medications Home Meds Reported Medications Abatacept (Orencia) 125 Mg/1 Ml Syringe 07/01/16 Potassium Chloride (Potassium Chloride) 10 Meq Tab.er.prt, 1 TAB PO DAILY, #30 TAB 5 Refills 07/01/16 Furosemide (Furosemide) 20 Mg Tablet, 1 TAB PO DAILY, TAB 07/01/16 Fexofenadine HCl (Patty Allergy) 180 Mg Tablet, 180 MG PO DAILY Y for PRN ORDERS 07/01/16 Multivitamin (Multivitamins) 1 Each Tablet, 1 TAB PO DAILY 05/30/16 Ascorbic Acid (Vitamin C with Jacqui Hips) 500 Mg Tablet, 500 MG PO DAILY 05/30/16 Calcium Carbonate/Vitamin D3 (Calcium 600 + Vit D 200 Tablet) 1 Each Tablet, 1 TAB PO QAM 05/30/16 Warfarin Sodium (Warfarin Sodium) 2 Mg Tablet, 1 MG PO MoWeFr@HS 12/02/15 Metoprolol Tartrate (Metoprolol Tartrate) 25 Mg Tablet, 25 MG PO BID 12/09/13 Ranitidine Hcl (Ranitidine Hcl) 150 Mg Tablet, 150 MG PO HS 08/24/13 Aspirin (Aspirin) 81 Mg Tab.chew, 81 MG PO HS 08/24/13 Ferrous Sulfate (Ferrous Sulfate) 324 Mg Tablet, 324 MG PO WB 08/24/13 Warfarin Sodium (Warfarin Sodium) 2 Mg Tablet, 2 MG PO SuTuThSa@HS 08/24/13 Magnesium Oxide (Mag-Oxide) 400 Mg Tablet, 400 MG PO BID 08/24/13 Citalopram (Celexa) 20 Mg Tablet, 20 MG PO HS 03/26/12 Allergies: Coded Allergies: Sulfa (Sulfonamide Antibiotics) (Verified Allergy, Unknown, 07/01/16) Assessment & Plan Plan/Intensity of Service 07/01/2016 Dr. Lang: It is now about 9:40 PM on ice just finished speaking to the family of Emerita Arron. She is embedded to ICU and was placed here because her calcium is up to 17.6. Size calcium level of air were seen on any patient parathyroid is only 5.7 and her lactate dehydrogenase is over 4200. Calcium was 2.2 to which is about double normal. Surprisingly her EKG shows a left bundle branch block and no other renal pathology initially we thought perhaps that the most likely explanation for this was a sarcoma as we know they can do pretty crazy things. However the CT she had last November which showed a mass in her upper right thigh is now gone and I examined that time there is nothing there. Surprisingly even though she is weak she was still walking this morning. The CT report was done last 12/06/2015 was due to a fall outside. Additionally her INR is elevated at 4.18. She also has an AICD/PPM implant in her chest as well as a mechanical mitral valve. Her Coumadin dose was about 2 mg a day but clearly that has gotten out of hand to have such a high INR. 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 Chest showed lungs with no wheezing whatsoever they were clear. Heart had a regular rate and rhythm there was an audible click. Denies soft and nontender bowel sounds are present extremities show no cyanosis clubbing or edema. The right side especially examination essentially no mass there at this particular time. Her diagnoses as expressed in Ms. Noble H&P are hypercalcemia, 2 confusion, left bundle branch block, elevated INR, and status post mechanical mitral valve replacement. I spoke to the family about the fact we had a Hospital here but we really didn't have any specialists who had probably dealt with a calcium that high and we certainly didn't have any creasing and cutting press feeder on the premises [id number] the family expressed their appreciation for what a good hospital we have here but did express also that they could understand why situation is unusual probably did need a large hospital with many subspecialists. I believe they have decided to have her transferred to [facility] in [place]. Red Ms. Montero is a history and physical and I definitely agree with her findings and her assessment and diagnoses. I certainly plan to continue the normal saline fluids and the IV Lasix until such time as this patient may decide to go ahead be transferred we've also ordered, of course, by mouth KCl. SANYA MONTERO IV THERAPY NURSE Jul 01, 2016 17:24 MIKEL LANG DO Jul 01, 2016 21:43
[2016-07-01 17:52] LABS: IONIZED CALCIUM 2.22 MMOL/L (1.12-1.32)
[2016-07-01 17:56] LABS: ALBUMIN 3.6 G/DL (3.5-5.0); ANION GAP 6 MEQ/L (5-15); BUN/CREATININE RATIO 18 RATIO (6-26); CHLORIDE 99 MEQ/L (98-107); CO2 - CARBON DIOXIDE 34 MEQ/L (22-30); CREATININE 0.9 MG/DL (0.7-1.2); GLOMERULAR FILTRATION RATE 60; GLUCOSE 107 MG/DL (65-110); PHOSPHORUS 3.8 MG/DL (2.5-4.5); POTASSIUM 4.1 MEQ/L (3.6-5); SODIUM 139 MEQ/L (134-144)
[2016-07-01 18:02] LABS: LDH 4207 U/L (313-618)
[2016-07-01 18:07] LABS: CALCIUM 17.6 MG/DL (8.4-10.2)
--- NOTE | 2016-07-01 18:15 | NUR ---
TRANSFER TO CCU PT WAS TRANSFERRED TO CCU AT THIS TIME. PT ALERT AND ORIENTED TO PERSON AND TIME OF YEAR. PT WAS TRANSFERRED VIA WHEELCHAIR, ABLE TO TRANSFER SELF FROM WHEELCHAIR TO BED WITH ASSIST. VITAL SIGNS STABLE AT TIME OF TRANSFER. REPORT TO ILSA HOPSON ON CCU. FAMILY PRESENT AT TIME OF TRANSFER.
--- NOTE | 2016-07-01 18:20 | NUR ---
TRANSFER Patient arrived to CCU bed 2 at 1820 per bed and monitoring initiated.
--- NOTE | 2016-07-01 20:59 | NUR ---
SUMMARY Debra has been accompanied by her family since admission. Family has brought in a copy of her DPOA paperwork and this was placed on the front of the chart. Nursing has discussed the basic CCU routines with them and demonstrated call light use. Assessment completed: see shift physical assessment documentation. In addition, patient notes that recently she has been "hot a lot", and family notes that she sweats a lot, especially at night time. When asked if she had been experiencing muscle cramping lately she stated a definite "yes". Family notes that she is in a significantly weakened and confused state compared to her usual level of functioning, that "this is nothing like her". Ornamental Iron Worker equal, PERRLA. Pressures: mild hypertension. Heart: murmur (valve replacement), around 100 bpm (ST w/ BBB), denies chest pain or pressure. Lungs: bilateral lower lobe crackles. Appetite: decreased. Swallow: able to swallow regular water without wet voicing or choking. They have been made aware that Dr Lang will be in to visit them and discuss her care this evening. Daniela Montero APRN has previously assessed and her notes have been reviewed. Labs have been called to Dr Lang. See physician notification intervention. Fluids infuse at 150 mls/hr.
[2016-07-01] MEDS ORDERED: FUROSEMIDE 20 MG/2 ML INJECTION IV SCH (21:00)
--- NOTE | 2016-07-01 21:08 | NUR ---
PHYSICIAN Dr Lang arrives to the unit.
--- NOTE | 2016-07-01 21:16 | DI ---
Indication: ITS.REASON: pain PROCEDURE: CT CERVICAL SPINE W/O CONTRAST: Encounter: Initial Comparison: None Technique: Axial CT images through the cervical spine were performed without contrast. Coronal and sagittal reformatted images were also obtained. Automated Exposure Control and Iterative Reconstruction dose reducing techniques were utilized. FINDINGS: The alignment of the cervical spine is abnormal but chronically so with degenerative areas of anterolisthesis and loss of the normal lordosis. Multilevel degenerative changes are present. There is no evidence of acute fracture or subluxation of the cervical spine. The atlantoaxial articulation, dens, and upper cervical spine demonstrate no subluxation. The paraspinal soft tissues and spinal canal appear unremarkable. IMPRESSION: No acute traumatic abnormality of the cervical spine. There is a preliminary report by [facility]. .
--- NOTE | 2016-07-01 21:19 | DI ---
Indication: ITS.REASON: slurred speech PROCEDURE: CT HEAD W/O CONTRAST: Encounter: Initial Comparison: July 09, 2014 Technique: Axial CT images through the head were performed without contrast. Iterative Reconstruction dose reducing technique was utilized. FINDINGS: Mild atrophy. The ventricles are of normal size, shape, and contour for the patient's age. There are scattered areas of low attenuation in the white matter which most likely represent changes from chronic microvascular ischemia. The brainstem, cerebellum, and cerebral hemispheres otherwise have a normal morphology and CT attenuation. There is no evidence of midline displacement. No hemorrhage, signs of acute territorial stroke, mass effect, mass lesions, or edema is evident. Left frontal scalp swelling. The visualized portions of the skull base, midface, and calvarium demonstrate no abnormality. Probably secretions in the left maxillary sinus. The tympanic and mastoid cavities appear normal. IMPRESSION: No acute intracranial abnormality or hemorrhage. There is a preliminary report by [facility]. .
--- NOTE | 2016-07-01 21:28 | DI ---
Indication: ITS.REASON: cough PROCEDURE: CHEST 1 VIEW: Encounter: Initial Comparison: September 10, 2013 Findings: Chronic areas of scarring in the right mid to lower lung field. No definite new areas of consolidation. Multiple overlying monitoring leads and left cardiac pacemaker. Upper lung velasco appear clear. Cardiac silhouette remains moderately enlarged. Mediastinal contours are stable and pulmonary vascularity is normal. Impression: Stable appearance of the chest with abnormal markings in the lung bases, most of which is probably due to scarring. A superimposed pneumonia cannot be entirely excluded. Recommend clinical and laboratory correlation. .
--- NOTE | 2016-07-01 21:31 | NUR ---
PHYSICIAN VISIT Dr Lang is visiting with patient and family. He discusses her very high calcium levels and that at times this can be an indicator of cancer, however that it is not a definite diagnosis. He evaluates her right thigh as a part of his assessment. He has also discussed the possibility of transfer to [place] for continued care with patient and family and they are currently discussing options.
--- NOTE | 2016-07-01 21:35 | NUR ---
Decision to transfer Pt family requests pt be transferred to [facility]. Dr Lang alerted. Dr Lang states to alert telehospitalist to make arrangements.
[2016-07-01] MEDS ORDERED: POTASSIUM CHLORIDE 20 MEQ TABLET PO PRN (21:45)
--- NOTE | 2016-07-01 22:40 | NUR ---
[facility] calls for face sheet. Face sheet faxed and room number rec'd: MICU room 19.
--- NOTE | 2016-07-01 22:55 | NUR ---
[facility] alerted of pt transfer.
--- NOTE | 2016-07-01 23:00 | NUR ---
Report Report given to [facility]: Cely ROSENBAUM. Relayed pertinent labs, VS, allergies, code status, DPOAH, CT results of cervical spine and Head. Relayed meds given, relayed mentation.
--- NOTE | 2016-07-01 23:00 | NUR ---
Discharge paperwork Shiraz signs discharge paperwork. Questions answered.
--- NOTE | 2016-07-01 23:20 | NUR ---
Transfer Pt transfers to [facility] via EMS at this time. Report given to EMS. Transfer Paperwork sent with EMS. Belongings including pt meds sent with jozef Weldon. Addendum: 07/02/16 at 0202 by FLOYD PAREDES RN [facility] at this time. Pt transferred with NS running at 250 cc/hr. Jess in place.
[2016-07-02] MEDS ORDERED: POTASSIUM CHLORIDE 20 MEQ TABLET PO SCH (08:00)
--- NOTE | 2016-07-02 09:25 | DI ---
Indication: ITS.REASON: Examine right femur area- r/o malignancy. PROCEDURE: CT PELVIS W/O CONTRAST: Encounter: Initial Comparison: CT pelvis, 12/06/2015 Technique: Axial, coronal, and sagittal images of the pelvis and upper right femur without contrast utilizing radiation dose reduction techniques. Findings: The proximal right femur appears unremarkable. No fracture, subluxation, or aggressive abnormality. Mild age-related degenerative changes of the sacroiliac joints and facets of the lower lumbosacral spine noted. No evidence of osteonecrosis of either femoral head and there is no destructive lesion involving the bony pelvis. Large hematoma surrounding the proximal femur on the reference study has resolved. Intrapelvic contents grossly unremarkable. Impression: Negative for significant abnormality of the proximal right femur as is questioned clinically. .
--- NOTE | 2016-07-03 08:40 | DSPDOC ---
General Date Date DATE: 07/03/16 TIME: 08:28 Attending Physician Mikel Lang DO Admitting Physician Mikel Lang DO Consulting Physician Admitting Diagnosis Acute CVA Discharge Diagnosis 1. hypercalcemia, 2. left bbb. 3.extreme weakness Laboratory ca++-17.2 ;inr- 4.18 Radiology n/a ;head ct - no acute process History of Present Illness Debra is a pleasant 80 yo female who appears younger than stated age. She was brought into the ED today due to confusion. is with her and helps give history as patient remains fairly confused despite being alert. reports that she was more fatigued than normal yesterday and slept most of the day. She ate a normal breakfast, but has not eaten much since then. He had to help her take her normal medications last night. She was weak this morning and had to use a walker 'for the first time.' She was seen in the ED and was evaluated for possible stroke with fairly normal imaging. At the time of this document, this author was first aware of a critically high calcium upon review of the chart upon completing review of the record. I have reviewed recent findings with patient and her . 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 Also has AICD/PPM in place. Follows with Dr. Caruso. Dr. Nuñez completed her surgery. They deny any recent health changes. No nausea or vomiting. No weight changes up or down. No focal pain in back, neck or legs. No bowel or bladder changes. She denies recent falls or injuries. She denies history of malignancy. Breast biopsy in past was reviewed and negative. No severe GERD. Does not routinely use any TUMS or other GI calcium supplements. Only takes one Calcium 600mg daily. Late entry on the discharge summary this is Dr. Lang: Mrs. Heller is extremely weak and has a calcium of 17.2. This high calcium usually signifies sarcoma or some other type of cancerous process being involved. I are very long discussion with the family about the pros and cons of staying here at [facility] and going to the larger hospital cause such as one of those large hospitals in [place]. I also counseled with close groins rashi who is an sales executive and they agreed that the that I calcium almost R signifies a cancer being involved. The family eventually decided they want to go to [facility] and as result of that I ended up the calling [facility] for my motel and was involved total about [address] Rubalcava to accept this patient and [facility]. Dr. Rubalcava eventually did agree to accept her and the patient was transferred over to [facility] from [facility]. Nely is at my motel I could not really do the discharge summary was quite late at night anyway. Patient was here such as short time she really doesn't have much in the way of history or progress done at this institution. Hospital Course 07/01/16- *Critical Hypercalcemia without tetany. Likely reason for confusion. Move to ICU now. Add IVF, Lasix for diuresis. Assess Inz CA, PTH, Vitamin D level. Very concerning for malignancy given chronic immunosuppression. Reassess CT of the leg due to abnormal CT of the thigh in November. (hematoma vs. malignancy). Renal function is stable. Place mercado due to need for aggressive diuresis. *AMS- Likely due to calcium. Hold sedating meds. CT of head on preliminary looks ok. Unable to get MRI due to ppm. Hold ASA due to excess anticoagulation. *Mechanical MVR- excess anticoagulation. INR over 4.0 Hold warfarin for now. Consult pharmacy for management. *RA, chronic immunosuppression- Hold immunosuppressive therapy. Assess PTH, LDH. D/W pt. at length and her . Again, move to ICU. Serial labs. Close monitoring. Problems: (1) Hypercalcemia Status: Acute Assessment & Plan: Critical hypercalcemia without tetany (2) Acute confusion Status: Acute (3) Abnormal computed tomography of lower extremity Status: Chronic (4) S/P heart valve replacement with mechanical valve Status: Chronic (5) Chronic anticoagulation Status: Chronic (6) HTN (hypertension) Status: Chronic (7) S/p recent immunosuppressive therapy Status: Chronic (8) Rheumatoid arthritis Status: Chronic Code Status Full Code Home Meds Discontinued Reported Medications Abatacept (Orencia) 125 Mg/1 Ml Syringe 07/01/16 Potassium Chloride (Potassium Chloride) 10 Meq Tab.er.prt, 1 TAB PO DAILY, #30 TAB 5 Refills 07/01/16 Furosemide (Furosemide) 20 Mg Tablet, 1 TAB PO DAILY, TAB 07/01/16 Fexofenadine HCl (Patty Allergy) 180 Mg Tablet, 180 MG PO DAILY Y for PRN ORDERS 07/01/16 Multivitamin (Multivitamins) 1 Each Tablet, 1 TAB PO DAILY 05/30/16 Ascorbic Acid (Vitamin C with Jacqui Hips) 500 Mg Tablet, 500 MG PO DAILY 05/30/16 Calcium Carbonate/Vitamin D3 (Calcium 600 + Vit D 200 Tablet) 1 Each Tablet, 1 TAB PO QAM 05/30/16 Warfarin Sodium (Warfarin Sodium) 2 Mg Tablet, 1 MG PO [id number] 12/02/15 Metoprolol Tartrate (Metoprolol Tartrate) 25 Mg Tablet, 25 MG PO BID 12/09/13 Ranitidine Hcl (Ranitidine Hcl) 150 Mg Tablet, 150 MG PO HS 08/24/13 Aspirin (Aspirin) 81 Mg Tab.chew, 81 MG PO HS 08/24/13 Ferrous Sulfate (Ferrous Sulfate) 324 Mg Tablet, 324 MG PO WB 08/24/13 Warfarin Sodium (Warfarin Sodium) 2 Mg Tablet, 2 MG PO [id number] 08/24/13 Magnesium Oxide (Mag-Oxide) 400 Mg Tablet, 400 MG PO BID 08/24/13 Citalopram (Celexa) 20 Mg Tablet, 20 MG PO HS 03/26/12 Face to Face Encounter I met with patient on the day of dismissal and discussed follow up appointments , medications, and safety plan. Discharge Disposition Mrs. Emerita Heller was discharged and technically transferred over to [facility] in [place] late night of July 01 due to family request after a long discussion we had about the fact that her extremely high calcium level probably indicates some sort of cancer process going on. With the calcium at high certainly her heart can do unusual things and that she really needs a piece meat trimmer to help diagnose and treat the problem she most likely has. Her calcium was 17.2 and she also had a very high INR of about 4.2. 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 Prognosis is poor. MIKEL LANG DO Jul 03, 2016 08:31
== END 2016-07-01 23:20 | disposition short-term general hospital (02) ==
LOC: ED 10:41 → EDHOLD 12:14 → MED 13:43 → CCU 18:20
DX: E83.52 Hypercalcemia (principal); R79.1 Abnormal coagulation profile; R53.1 Weakness; I44.7 Left bundle-branch block, unspecified; I10 Essential (primary) hypertension; R47.81 Slurred speech; I25.10 Atherosclerotic heart disease of native coronary artery without angina pectoris; I50.9 Heart failure, unspecified; R41.0 Disorientation, unspecified; R93.6 Abnormal findings on diagnostic imaging of limbs; M06.9 Rheumatoid arthritis, unspecified; Z87.01 Personal history of pneumonia (recurrent); Z95.810 Presence of automatic (implantable) cardiac defibrillator; Z98.61 Coronary angioplasty status; F32.9 Major depressive disorder, single episode, unspecified; K21.9 Gastro-esophageal reflux disease without esophagitis; Z79.899 Other long term (current) drug therapy; Z79.01 Long term (current) use of anticoagulants; Z79.82 Long term (current) use of aspirin; Z95.2 Presence of prosthetic heart valve
CPT/HCPCS: 36415; 51701; 70450; 71010; 72125; 72192; 80053; 81003; 82330; 82652; 82948; 83615; 83970; 84484; 85025; 85610; 85730; 93005; 94640; 96361; 96374; 99284; A9270; G0378; J1940; J7030; L0150; 80069; 99218